=== PATIENT | female | born 1965 | race Caucasian/White ===

== ENCOUNTER 2017-08-17 13:57 | Emergency (ER) | payer SELFPAY ==
[~2017-08-17] VITALS: Ht 167.6 cm; Wt 70.0 kg
[2017-08-17 13:59] VITALS: BP 124/84; PULSE 95; RESP 16; TEMP 98.6; O2SAT 100
--- NOTE | 2017-08-17 15:01 | RADRPT ---
EXAM DATE/TIME: 08/17/2017 14:39 [place] COMPARISON: No previous studies available for comparison. INDICATIONS : Right foot, first digit pain after a table fell on her foot. MEDICAL HISTORY : None. SURGICAL HISTORY : None. ENCOUNTER: Initial ACUITY: 1 day PAIN SCORE: 8/10 LOCATION: Right foot, first digit. FINDINGS: Fracture distal tuft great toe, anatomic alignment. No fractures are appreciated. CONCLUSION: Fracture distal tuft great toe. Samuel Ng MD FACR on August 17, 2017 at 14:59 Board Certified Radiologist. This report was verified electronically.
--- NOTE | 2017-08-17 15:13 | PD ---
HPI Chief Complaint: Injury Time Seen by Provider: 14:55 Travel History International Travel<30 days: No Contact w/Intl Traveler<30days: No Traveled to known affect area: No History of Present Illness HPI 52-year-old female presents emergency Department with complaint of right great toe pain after lifting up a table and the piece of glass on top of the table fell onto her toe today. Denies paresthesias, loss of sensation to the affected toe. Denies pain at this time. Said she had pain earlier but took an ibuprofen and her pain has subsided. Denies fever, vomiting. There is no open wound noted to the toe. Pain was throbbing in sensation. No known allergies. Has no other medical complaints. No other modifying factors or associated signs and symptoms. [facility] Social History Tobacco Use: No Allergies-Medications (Allergen,Severity, Reaction): Coded Allergies: No Known Allergies (Unverified , 08/17/17) Reported Meds & Prescriptions Reported Meds & Active Scripts Active Ibuprofen 800 Mg Tab 800 Mg PO Q6HR PRN Review of Systems Except as stated in HPI: all other systems reviewed are Neg Physical Exam Narrative GENERAL: Well-nourished, well-developed female patient, in no acute distress SKIN: Warm and dry. Distal aspect of the right great toe with mild edema; no obvious deformity; sensory intact; partial subungual hematoma noted; toenail intact. Right lower extremity supple and nontender to 2+ pedal pulses and sensory intact without erythema or edema. HEAD: Atraumatic. Normocephalic. EYES: Pupils equal and round. No scleral icterus. No injection or drainage. ENT: Mucosa pink and moist. Airway patent. NECK: Trachea midline. CARDIOVASCULAR: Regular rate. RESPIRATORY: No accessory muscle use. GASTROINTESTINAL: Flat. MUSCULOSKELETAL: No obvious deformities. No clubbing. No cyanosis. No edema. NEUROLOGICAL: Awake and alert. Oriented 3. No obvious cranial nerve deficits. Motor grossly within normal limits. Normal speech. PSYCHIATRIC: Appropriate mood and affect; insight and judgment normal. Data Data Last Documented VS Vital Signs Date Time Temp Pulse Resp B/P (MAP) Pulse Ox O2 Delivery O2 Flow Rate FiO2 08/17/17 13:59 98.6 95 16 124/84 (97) 100 Room Air Orders Orders Foot, Complete (Rov0ech) (08/17/17 14:20) Ed Discharge Order (08/17/17 15:22) Ice/Cold Pack (08/17/17 15:22) Splint Or Brace Apply/Monitor (08/17/17 15:22) Crutches (08/17/17 15:22) MDM Medical Decision Making Medical Screen Exam Complete: Yes Emergency Medical Condition: Yes Medical Record Reviewed: Yes Differential Diagnosis Toe contusion, toe fracture, toe injury Narrative Course 52-year-old female with fracture of the right great toe. Patient previously took ibuprofen prior to arrival and says she has no pain at this time. Postop shoe and crutches provided for support. Ibuprofen prescribed for home. Instructed patient to follow up with primary care provider. Patient verbalizes understanding and agreement with treatment plan. Patient is medically cleared and stable for discharge. Discussed reasons to return to the emergency department. Patient agrees with treatment plan. The patients vital signs are stable and the patient is stable for outpatient follow-up and treatment. Patient discharged home, stable and in no acute distress. Diagnosis Primary Impression: Fracture of great toe of right foot Qualified Codes: S92.424A - Nondisplaced fracture of distal phalanx of right great toe, initial encounter for closed fracture Referrals: Primary Care Physician Patient Instructions: General Instructions, Toe Fracture (ED) Additional Instructions: I have or Tylenol as directed and as needed for pain and inflammation Rice, ice, compress, elevate affected extremity Postop shoe for support Crutches for support Follow-up with primary care provider Return to the emergency department immediately with worsening of symptoms Med/Other Pt SpecificInfo: Prescription(s) given Scripts Ibuprofen (Ibuprofen) 800 Mg Tab 800 MG PO Q6HR Y for PAIN, #30 TAB 0 Refills Prov: Sumi Rg 08/17/17 Disposition: 01 DISCHARGE HOME Condition: Stable Sumi Rg Aug 17, 2017 15:13
[2017-08-17] MEDS ORDERED: HYDR-3533 PO (15:21)
[2017-08-17] MEDS ORDERED: IBUP800T23 PO (15:21)
== END 2017-08-17 16:07 | disposition home or self-care (01) ==
LOC: NEPK 13:57
DX: S92.424A Nondisplaced fracture of distal phalanx of right great toe, initial encounter for closed fracture (principal); W20.8XXA Other cause of strike by thrown, projected or falling object, initial encounter
CPT/HCPCS: 73630; 99283; E0113; L3260